=== PATIENT | female | born 1970 | race African-American/Black ===

== ENCOUNTER 2022-09-29 14:29 | Inpatient (IN) ==
[2022-09-29] MEDS ORDERED: ASPIRIN 325 MG TABLET PO STA (17:05)
[2022-09-29] MEDS ORDERED: FUROSEMIDE 40 MG/4 ML VIAL IV STA (17:07)
[2022-09-29 17:13] LABS: Basophils % 0.4 % (0.0-0.8); Eosinophils # 0.2 10*3/uL (0.0-0.87); Hematocrit 25.2 VOL% (35.7-47.0); Hemoglobin 7.5 GM/DL (12.0-16.0); Immature Granulocytes % 0.4 %; Immature Granulocytes Absolute 0.03 #; Lymphocytes % 23.8 % (21.3-54.2); Mean Corpuscular HGB Conc 29.8 GM/DL (32-36); Mean Platelet Volume 10.5 FL (9.6-12.0); Monocytes # 0.8 10*3/uL (0.11-0.8); Monocytes % 9.1 % (1.7-12.7); Neutrophils % 64.3 % (38.7-73.9); Platelet Count 325 T/CUMM (130-400); Red Blood Count 2.83 MC/CUMM (3.8-5.5); Red Cell Distribution Width 19.3 % (9.3-17.3); White Blood Count 8.4 T/CUMM (4-12)
[2022-09-29 17:25] LABS: Alanine Aminotransferase 29 U/L (13-56); Albumin 2.2 G/DL (3.4-5.0); Alkaline Phosphatase 131 U/L (45-117); Aspartate Amino Transferase 27 U/L (0-37); Bilirubin,Total < 0.39 MG/DL (0.20-1.00); Blood Urea Nitrogen 34 MG/DL (7-18); Calcium 8.3 MG/DL (8.5-10.1); Carbon Dioxide 23 MMOL/L (21-32); Chloride 116 MMOL/L (98-107); Glucose 111 MG/DL (74-106); Potassium 4.5 MMOL/L (3.5-5.1); Sodium 143 MMOL/L (136-145); Total Protein 6.1 G/DL (6.4-8.2)
[2022-09-29] MEDS ORDERED: hydrALAZINE 20 MG/1 ML VIAL IV STA (18:51)
[2022-09-29] MEDS ORDERED: ACETAMINOPHEN 325 MG TABLET PO PRN (20:56)
[2022-09-29] MEDS ORDERED: ONDANSETRON 4 MG/2 ML VIAL IV PRN (20:56)
[2022-09-29] MEDS ORDERED: DOCUSATE SODIUM 100 MG CAPSULE PO PRN (20:56)
[2022-09-29] MEDS: carvediloL 6.25 MG TABLET PO SCH (22:00)
[2022-09-29] MEDS: hydrALAZINE 25 MG TABLET PO SCH (22:00)
[2022-09-29] MEDS ORDERED: ENOXAPARIN 120 MG/0.8 ML SYRINGE SUBCUT SCH (23:00)
[2022-09-30 00:49] LABS: Bacteria,Urine Occasional /HPF (Few); Bilirubin,Urine Negative (Negative); Blood, Urine Trace mg/dL (Negative); Glucose,Urine (UA) Negative (Negative); Ketones,Urine Negative (Negative); Mucus,Urine Occasional /LPF (Occasional); Nitrite,Urine Negative (Negative); Protein,Urine >=300 mg/dL (Negative); RBC,Urine 2 /HPF (0-4); Squamous Epithelial Cell,Urine Occasional /HPF (0-10); Urine Appearance Clear (Clear); Urine Color Yellow (Yellow); Urine Specific Gravity 1.025 (1.001-1.035); Urine Urobilinogen 0.2 eU/dL (<2.0); Urine pH 5.5 (4.5-8.0)
[2022-09-30 05:28] LABS: Arterial Base Excess iSTAT -4 MMOL/L (-2.5-2.5); Arterial Bicarbonate iSTAT 20.7 MMOL/L (20-26); Arterial O2 Saturation iSTAT 97 % (95-100); Arterial PCO2 iSTAT 37 MM HG (35-48); Arterial PO2 iSTAT 97 MM HG (80-95); Arterial Total CO2 iSTAT 22 MMO/L (23-27); Arterial pH iSTAT 7.354 (7.35-7.45)
[2022-09-30 06:11] LABS: Basophils % 0.3 % (0.0-0.8); Eosinophils # 0.2 10*3/uL (0.0-0.87); Hematocrit 24.6 VOL% (35.7-47.0); Hemoglobin 7.4 GM/DL (12.0-16.0); Immature Granulocytes % 0.4 %; Immature Granulocytes Absolute 0.04 #; Lymphocytes % 21.5 % (21.3-54.2); Mean Corpuscular HGB Conc 30.1 GM/DL (32-36); Mean Corpuscular Volume 89.5 FL (87-102); Mean Platelet Volume 9.8 FL (9.6-12.0); Monocytes # 0.9 10*3/uL (0.11-0.8); Monocytes % 9.3 % (1.7-12.7); Neutrophils % 66.5 % (38.7-73.9); Platelet Count 289 T/CUMM (130-400); Red Blood Count 2.75 MC/CUMM (3.8-5.5); Red Cell Distribution Width 19.4 % (9.3-17.3); White Blood Count 9.3 T/CUMM (4-12)
[2022-09-30 06:31] LABS: Parathyroid Hormone Intact 150.4 PG/ML (18.4-80.1)
[2022-09-30 06:33] LABS: % Iron Saturation 18.4 % (18-50); Ferritin 460.4 ng/mL (8-252); Phosphorous 4.9 MG/DL (2.5-4.9)
[2022-09-30 06:36] LABS: Folate 9.15 NG/ML (5.38-24.0); Vitamin B12 665 PG/ML (211-911)
[2022-09-30 06:39] LABS: Calcium 8.4 MG/DL (8.5-10.1); Risk Ratio 3.07; Thyroid Stimulating Hormone 1.04 uIU/ml (0.358-3.74); VLDL Cholesterol 22.2 MG/DL
[2022-09-30] MEDS: INSULIN REGULAR 100 UNIT/ML SUBCUT SCH ×4 (07:41→19:43)
[2022-09-30 08:33] LABS: Sedimentation Rate-Westergren 107 MM/HR (0-30)
[2022-09-30] MEDS ORDERED: HEPARIN 5,000 UNIT/1 ML VIAL SUBCUT SCH (09:00)
[2022-09-30] MEDS: FUROSEMIDE 40 MG/4 ML VIAL IV SCH ×2 (09:04→16:19)
[2022-09-30] MEDS: hydrALAZINE 25 MG TABLET PO SCH (09:05)
[2022-09-30] MEDS: carvediloL 6.25 MG TABLET PO SCH (09:05)
[2022-09-30] MEDS: carvediloL 25 MG TABLET PO SCH (16:20)
[2022-09-30] MEDS: HEPARIN 5,000 UNIT/1 ML VIAL SUBCUT SCH (20:05)
[2022-09-30] MEDS: ATORVASTATIN 40 MG TABLET PO SCH (20:05)
[2022-09-30] MEDS: FERROUS SULFATE 325 MG TABLET PO SCH (20:05)
[2022-10-01 05:15] LABS: Basophils % 0.2 % (0.0-0.8); Eosinophils # 0.2 10*3/uL (0.0-0.87); Eosinophils % 1.8 % (0.00-10.9); Hematocrit 22.9 VOL% (35.7-47.0); Immature Granulocytes % 0.5 %; Immature Granulocytes Absolute 0.05 #; Lymphocytes # 1.9 10*3/uL (1.4-4.0); Lymphocytes % 20.2 % (21.3-54.2); Mean Corpuscular HGB Conc 30.6 GM/DL (32-36); Mean Corpuscular Volume 89.5 FL (87-102); Mean Platelet Volume 10.7 FL (9.6-12.0); Monocytes % 10.4 % (1.7-12.7); Neutrophils % 66.9 % (38.7-73.9); Platelet Count 265 T/CUMM (130-400); Red Blood Count 2.56 MC/CUMM (3.8-5.5); Red Cell Distribution Width 18.7 % (9.3-17.3); White Blood Count 9.2 T/CUMM (4-12)
[2022-10-01 05:28] LABS: Calcium 8.4 MG/DL (8.5-10.1); Potassium 3.9 MMOL/L (3.5-5.1)
[2022-10-01] MEDS: INSULIN REGULAR 100 UNIT/ML SUBCUT SCH ×4 (07:25→20:45)
[2022-10-01] MEDS: hydrALAZINE 20 MG/1 ML VIAL IV PRN (07:45)
[2022-10-01] MEDS: PANTOPRAZOLE 40 MG TABLET PO SCH (08:00)
[2022-10-01] MEDS: FERROUS SULFATE 325 MG TABLET PO SCH ×2 (08:00→20:45)
[2022-10-01] MEDS: DAPAGLIFLOZIN 10 MG TABLET PO SCH (08:00)
[2022-10-01] MEDS: CHOLECALCIFEROL 5,000 UNIT TABLET PO SCH (08:00)
[2022-10-01] MEDS: FUROSEMIDE 40 MG/4 ML VIAL IV SCH ×2 (08:00→16:28)
[2022-10-01] MEDS: carvediloL 25 MG TABLET PO SCH ×2 (08:00→16:31)
[2022-10-01] MEDS: ASPIRIN EC 81 MG TABLET PO SCH (08:00)
[2022-10-01] MEDS: HEPARIN 5,000 UNIT/1 ML VIAL SUBCUT SCH ×2 (08:00→20:45)
[2022-10-01] MEDS: GABAPENTIN 100 MG CAPSULE PO SCH ×2 (11:39→20:45)
[2022-10-01] MEDS: ISOSORBIDE MONONITRATE 60 MG TABLET PO SCH (11:39)
[2022-10-01] MEDS: ATORVASTATIN 40 MG TABLET PO SCH (20:45)
[2022-10-02 06:43] LABS: Basophils % 0.2 % (0.0-0.8); Eosinophils # 0.1 10*3/uL (0.0-0.87); Eosinophils % 1.2 % (0.00-10.9); Hematocrit 23.1 VOL% (35.7-47.0); Immature Granulocytes % 0.5 %; Immature Granulocytes Absolute 0.05 #; Lymphocytes # 1.8 10*3/uL (1.4-4.0); Lymphocytes % 18.5 % (21.3-54.2); Mean Corpuscular HGB Conc 30.3 GM/DL (32-36); Mean Corpuscular Volume 88.2 FL (87-102); Mean Platelet Volume 10.7 FL (9.6-12.0); Monocytes # 1.1 10*3/uL (0.11-0.8); Monocytes % 11.6 % (1.7-12.7); Platelet Count 244 T/CUMM (130-400); Red Blood Count 2.62 MC/CUMM (3.8-5.5); Red Cell Distribution Width 18.4 % (9.3-17.3); White Blood Count 9.8 T/CUMM (4-12)
[2022-10-02 06:53] LABS: Calcium 8.6 MG/DL (8.5-10.1); Potassium 3.8 MMOL/L (3.5-5.1)
[2022-10-02] MEDS: INSULIN REGULAR 100 UNIT/ML SUBCUT SCH ×4 (07:55→21:33)
[2022-10-02] MEDS: FUROSEMIDE 40 MG/4 ML VIAL IV SCH ×2 (08:57→16:48)
[2022-10-02] MEDS: ISOSORBIDE MONONITRATE 60 MG TABLET PO SCH (08:58)
[2022-10-02] MEDS: carvediloL 25 MG TABLET PO SCH (08:58)
[2022-10-02] MEDS: DAPAGLIFLOZIN 10 MG TABLET PO SCH (08:58)
[2022-10-02] MEDS: HEPARIN 5,000 UNIT/1 ML VIAL SUBCUT SCH ×2 (08:58→21:30)
[2022-10-02] MEDS: GABAPENTIN 100 MG CAPSULE PO SCH ×2 (08:58→21:30)
[2022-10-02] MEDS: sitaGLIPtin 25 MG TABLET PO SCH (08:59)
[2022-10-02] MEDS: ASPIRIN EC 81 MG TABLET PO SCH (08:59)
[2022-10-02] MEDS: FERROUS SULFATE 325 MG TABLET PO SCH ×2 (08:59→21:30)
[2022-10-02] MEDS: PANTOPRAZOLE 40 MG TABLET PO SCH (08:59)
[2022-10-02] MEDS: CHOLECALCIFEROL 5,000 UNIT TABLET PO SCH (08:59)
[2022-10-02] MEDS ORDERED: cloNIDine 0.1 MG TABLET PO SCH (09:00)
[2022-10-02 10:41] LABS: Hemoglobin A1 (Alkaline) 97.3 % (96.5-98.5); Hemoglobin A2 (Alkaline) 2.7 % (1.5-3.5)
[2022-10-02] MEDS: hydrALAZINE 20 MG/1 ML VIAL IV PRN (12:22)
[2022-10-02] MEDS ORDERED: amLODIPine 5 MG TABLET PO ONE (13:32)
[2022-10-02] MEDS: METOCLOPRAMIDE 5 MG TABLET PO SCH (16:48)
[2022-10-02] MEDS: ATORVASTATIN 40 MG TABLET PO SCH (21:30)
[2022-10-02] MEDS: NEBIVOLOL 10 MG TABLET PO SCH (21:30)
[2022-10-03 04:51] LABS: Basophils % 0.2 % (0.0-0.8); Eosinophils # 0.3 10*3/uL (0.0-0.87); Eosinophils % 3.1 % (0.00-10.9); Hematocrit 23.2 VOL% (35.7-47.0); Hemoglobin 7.2 GM/DL (12.0-16.0); Immature Granulocytes % 0.2 %; Immature Granulocytes Absolute 0.02 #; Lymphocytes # 2.1 10*3/uL (1.4-4.0); Lymphocytes % 23.7 % (21.3-54.2); Mean Corpuscular Volume 87.2 FL (87-102); Mean Platelet Volume 10.2 FL (9.6-12.0); Monocytes # 0.9 10*3/uL (0.11-0.8); Monocytes % 10.7 % (1.7-12.7); Neutrophils % 62.1 % (38.7-73.9); Platelet Count 231 T/CUMM (130-400); Red Blood Count 2.66 MC/CUMM (3.8-5.5); Red Cell Distribution Width 17.8 % (9.3-17.3); White Blood Count 8.8 T/CUMM (4-12)
[2022-10-03 05:21] LABS: Calcium 8.6 MG/DL (8.5-10.1); Osmolality,Calculated 289.1 MOS/KG (273-304); Potassium 3.8 MMOL/L (3.5-5.1)
[2022-10-03] MEDS ORDERED: MAGNESIUM SULF RIDER 2 GM/50 ML PREMIX IV ONE (06:51)
[2022-10-03] MEDS: INSULIN REGULAR 100 UNIT/ML SUBCUT SCH ×4 (08:23→21:22)
[2022-10-03] MEDS ORDERED: DOXAZOSIN 1 MG TABLET PO SCH (09:00)
[2022-10-03] MEDS: FUROSEMIDE 40 MG/4 ML VIAL IV SCH ×2 (10:04→17:15)
[2022-10-03] MEDS: HEPARIN 5,000 UNIT/1 ML VIAL SUBCUT SCH ×2 (10:05→21:19)
[2022-10-03] MEDS: CHOLECALCIFEROL 5,000 UNIT TABLET PO SCH (10:05)
[2022-10-03] MEDS: ISOSORBIDE MONONITRATE 60 MG TABLET PO SCH (10:05)
[2022-10-03] MEDS: sitaGLIPtin 25 MG TABLET PO SCH (10:06)
[2022-10-03] MEDS: NEBIVOLOL 10 MG TABLET PO SCH ×2 (10:06→21:19)
[2022-10-03] MEDS: METOCLOPRAMIDE 5 MG TABLET PO SCH ×3 (10:06→17:14)
[2022-10-03] MEDS: GABAPENTIN 100 MG CAPSULE PO SCH ×2 (10:07→21:19)
[2022-10-03] MEDS: ASPIRIN EC 81 MG TABLET PO SCH (10:07)
[2022-10-03] MEDS: amLODIPine 5 MG TABLET PO SCH (10:07)
[2022-10-03] MEDS: FERROUS SULFATE 325 MG TABLET PO SCH ×2 (10:07→21:19)
[2022-10-03] MEDS: DAPAGLIFLOZIN 10 MG TABLET PO SCH (10:07)
[2022-10-03] MEDS: PANTOPRAZOLE 40 MG TABLET PO SCH (10:07)
[2022-10-03] MEDS: hydrALAZINE 20 MG/1 ML VIAL IV PRN (12:16)
[2022-10-03 16:26] LABS: Soluble Transf Receptor (sTfR) 4.5 mg/L (1.8 - 4.6)
[2022-10-03] MEDS ORDERED: DOXAZOSIN 1 MG TABLET PO ONE (21:00)
[2022-10-03] MEDS: ATORVASTATIN 40 MG TABLET PO SCH (21:19)
[2022-10-04] MEDS: hydrALAZINE 20 MG/1 ML VIAL IV PRN (00:45)
[2022-10-04 04:35] LABS: Basophils % 0.2 % (0.0-0.8); Eosinophils # 0.2 10*3/uL (0.0-0.87); Eosinophils % 2.2 % (0.00-10.9); Hematocrit 24.5 VOL% (35.7-47.0); Hemoglobin 7.5 GM/DL (12.0-16.0); Immature Granulocytes % 0.5 %; Immature Granulocytes Absolute 0.05 #; Lymphocytes # 2.1 10*3/uL (1.4-4.0); Lymphocytes % 18.9 % (21.3-54.2); Mean Corpuscular HGB Conc 30.6 GM/DL (32-36); Mean Corpuscular Volume 86.6 FL (87-102); Mean Platelet Volume 10.5 FL (9.6-12.0); Monocytes % 9.2 % (1.7-12.7); Platelet Count 235 T/CUMM (130-400); Red Blood Count 2.83 MC/CUMM (3.8-5.5); Red Cell Distribution Width 17.3 % (9.3-17.3)
[2022-10-04 04:53] LABS: Calcium 8.7 MG/DL (8.5-10.1); Osmolality,Calculated 287.4 MOS/KG (273-304); Potassium 3.7 MMOL/L (3.5-5.1)
[2022-10-04] MEDS: INSULIN REGULAR 100 UNIT/ML SUBCUT SCH ×4 (08:00→21:14)
[2022-10-04] MEDS: FUROSEMIDE 40 MG/4 ML VIAL IV SCH ×2 (08:44→16:38)
[2022-10-04] MEDS: FERROUS SULFATE 325 MG TABLET PO SCH ×2 (08:45→21:13)
[2022-10-04] MEDS: HEPARIN 5,000 UNIT/1 ML VIAL SUBCUT SCH ×2 (08:45→21:13)
[2022-10-04] MEDS: ASPIRIN EC 81 MG TABLET PO SCH (08:45)
[2022-10-04] MEDS: ISOSORBIDE MONONITRATE 60 MG TABLET PO SCH (08:45)
[2022-10-04] MEDS: DAPAGLIFLOZIN 10 MG TABLET PO SCH (08:45)
[2022-10-04] MEDS: cloNIDine 0.1 MG TABLET PO PRN ×2 (08:45→16:37)
[2022-10-04] MEDS: sitaGLIPtin 25 MG TABLET PO SCH (08:45)
[2022-10-04] MEDS: GABAPENTIN 100 MG CAPSULE PO SCH ×2 (08:46→21:13)
[2022-10-04] MEDS: DOXAZOSIN 1 MG TABLET PO SCH ×2 (08:46→21:13)
[2022-10-04] MEDS: amLODIPine 5 MG TABLET PO SCH (08:46)
[2022-10-04] MEDS: METOCLOPRAMIDE 5 MG TABLET PO SCH ×3 (08:46→16:42)
[2022-10-04] MEDS: CHOLECALCIFEROL 5,000 UNIT TABLET PO SCH (08:46)
[2022-10-04] MEDS: NEBIVOLOL 10 MG TABLET PO SCH ×2 (08:46→21:13)
[2022-10-04] MEDS: PANTOPRAZOLE 40 MG TABLET PO SCH (08:46)
[2022-10-04] MEDS: ATORVASTATIN 40 MG TABLET PO SCH (21:13)
[2022-10-05] MEDS: hydrALAZINE 20 MG/1 ML VIAL IV PRN (01:29)
[2022-10-05 05:11] LABS: Basophils % 0.3 % (0.0-0.8); Eosinophils # 0.2 10*3/uL (0.0-0.87); Eosinophils % 1.9 % (0.00-10.9); Hematocrit 22.5 VOL% (35.7-47.0); Immature Granulocytes % 0.4 %; Immature Granulocytes Absolute 0.04 #; Lymphocytes # 1.9 10*3/uL (1.4-4.0); Lymphocytes % 19.6 % (21.3-54.2); Mean Corpuscular HGB Conc 31.1 GM/DL (32-36); Mean Corpuscular Volume 86.5 FL (87-102); Mean Platelet Volume 10.7 FL (9.6-12.0); Neutrophils % 67.8 % (38.7-73.9); Platelet Count 227 T/CUMM (130-400); Red Cell Distribution Width 17.2 % (9.3-17.3); White Blood Count 9.9 T/CUMM (4-12)
[2022-10-05 05:40] LABS: Calcium 8.6 MG/DL (8.5-10.1); Osmolality,Calculated 291.1 MOS/KG (273-304); Potassium 3.5 MMOL/L (3.5-5.1)
[2022-10-05] MEDS: INSULIN REGULAR 100 UNIT/ML SUBCUT SCH ×4 (09:31→22:03)
[2022-10-05] MEDS: DAPAGLIFLOZIN 10 MG TABLET PO SCH (09:41)
[2022-10-05] MEDS: PANTOPRAZOLE 40 MG TABLET PO SCH (09:41)
[2022-10-05] MEDS: DOXAZOSIN 1 MG TABLET PO SCH ×2 (09:41→20:56)
[2022-10-05] MEDS: FERROUS SULFATE 325 MG TABLET PO SCH ×2 (09:41→20:56)
[2022-10-05] MEDS: ISOSORBIDE MONONITRATE 60 MG TABLET PO SCH (09:41)
[2022-10-05] MEDS: GABAPENTIN 100 MG CAPSULE PO SCH ×2 (09:41→20:55)
[2022-10-05] MEDS: NEBIVOLOL 10 MG TABLET PO SCH (09:41)
[2022-10-05] MEDS: ASPIRIN EC 81 MG TABLET PO SCH (09:41)
[2022-10-05] MEDS: METOCLOPRAMIDE 5 MG TABLET PO SCH ×3 (09:42→16:10)
[2022-10-05] MEDS: amLODIPine 5 MG TABLET PO SCH (09:42)
[2022-10-05] MEDS: LINACLOTIDE 145 MCG CAPSULE PO SCH (09:42)
[2022-10-05] MEDS: FUROSEMIDE 40 MG/4 ML VIAL IV SCH ×2 (09:43→16:07)
[2022-10-05] MEDS: HEPARIN 5,000 UNIT/1 ML VIAL SUBCUT SCH ×2 (09:45→20:55)
[2022-10-05] MEDS: sitaGLIPtin 25 MG TABLET PO SCH (09:45)
[2022-10-05] MEDS: CHOLECALCIFEROL 5,000 UNIT TABLET PO SCH (09:45)
[2022-10-05] MEDS ORDERED: DOXAZOSIN 1 MG TABLET PO ONE (12:49)
[2022-10-05] MEDS ORDERED: NEBIVOLOL 10 MG TABLET PO ONE (12:50)
[2022-10-05] MEDS: ATORVASTATIN 40 MG TABLET PO SCH (20:55)
[2022-10-05] MEDS: cloNIDine 0.1 MG TABLET PO PRN (20:55)
[2022-10-05] MEDS: traZODone 50 MG TABLET PO PRN (20:57)
[2022-10-05] MEDS ORDERED: NEBIVOLOL 10 MG TABLET PO SCH (21:00)
[2022-10-06 04:41] LABS: Basophils % 0.2 % (0.0-0.8); Eosinophils # 0.2 10*3/uL (0.0-0.87); Eosinophils % 2.1 % (0.00-10.9); Hematocrit 22.9 VOL% (35.7-47.0); Hemoglobin 7.1 GM/DL (12.0-16.0); Immature Granulocytes % 0.6 %; Immature Granulocytes Absolute 0.05 #; Lymphocytes % 23.1 % (21.3-54.2); Mean Corpuscular Volume 86.7 FL (87-102); Mean Platelet Volume 10.7 FL (9.6-12.0); Monocytes # 0.8 10*3/uL (0.11-0.8); Monocytes % 9.7 % (1.7-12.7); Neutrophils % 64.3 % (38.7-73.9); Platelet Count 233 T/CUMM (130-400); Red Blood Count 2.64 MC/CUMM (3.8-5.5); White Blood Count 8.6 T/CUMM (4-12)
[2022-10-06 05:06] LABS: Calcium 8.7 MG/DL (8.5-10.1); Osmolality,Calculated 289.3 MOS/KG (273-304); Potassium 3.5 MMOL/L (3.5-5.1)
[2022-10-06] MEDS: LINACLOTIDE 145 MCG CAPSULE PO SCH (10:35)
[2022-10-06] MEDS: INSULIN REGULAR 100 UNIT/ML SUBCUT SCH ×4 (10:36→23:02)
[2022-10-06] MEDS: ISOSORBIDE MONONITRATE 60 MG TABLET PO SCH (10:37)
[2022-10-06] MEDS: DAPAGLIFLOZIN 10 MG TABLET PO SCH (10:38)
[2022-10-06] MEDS: sitaGLIPtin 25 MG TABLET PO SCH (10:38)
[2022-10-06] MEDS: FERROUS SULFATE 325 MG TABLET PO SCH ×2 (10:38→22:38)
[2022-10-06] MEDS: PANTOPRAZOLE 40 MG TABLET PO SCH (10:38)
[2022-10-06] MEDS: CHOLECALCIFEROL 5,000 UNIT TABLET PO SCH (10:39)
[2022-10-06] MEDS: ASPIRIN EC 81 MG TABLET PO SCH (10:39)
[2022-10-06] MEDS: GABAPENTIN 100 MG CAPSULE PO SCH ×2 (10:39→22:38)
[2022-10-06] MEDS: NEBIVOLOL 10 MG TABLET PO SCH ×2 (10:41→22:36)
[2022-10-06] MEDS: amLODIPine 5 MG TABLET PO SCH (10:41)
[2022-10-06] MEDS: FUROSEMIDE 40 MG/4 ML VIAL IV SCH ×2 (10:42→17:05)
[2022-10-06] MEDS: HEPARIN 5,000 UNIT/1 ML VIAL SUBCUT SCH ×2 (10:42→22:38)
[2022-10-06] MEDS: METOCLOPRAMIDE 5 MG TABLET PO SCH ×3 (10:47→17:05)
[2022-10-06] MEDS: DOXAZOSIN 1 MG TABLET PO SCH ×2 (10:48→22:41)
[2022-10-06] MEDS: hydrALAZINE 20 MG/1 ML VIAL IV PRN (12:51)
[2022-10-06] MEDS: ATORVASTATIN 40 MG TABLET PO SCH (22:37)
[2022-10-06] MEDS: cloNIDine 0.1 MG TABLET PO PRN (22:37)
[2022-10-07 04:29] LABS: Basophils % 0.3 % (0.0-0.8); Eosinophils # 0.2 10*3/uL (0.0-0.87); Eosinophils % 1.9 % (0.00-10.9); Hematocrit 21.5 VOL% (35.7-47.0); Hemoglobin 6.5 GM/DL (12.0-16.0); Immature Granulocytes % 0.3 %; Immature Granulocytes Absolute 0.03 #; Lymphocytes % 22.5 % (21.3-54.2); Mean Corpuscular HGB Conc 30.2 GM/DL (32-36); Mean Corpuscular Volume 87.8 FL (87-102); Mean Platelet Volume 11.1 FL (9.6-12.0); Monocytes % 11.6 % (1.7-12.7); Neutrophils % 63.4 % (38.7-73.9); Platelet Count 221 T/CUMM (130-400); Red Blood Count 2.45 MC/CUMM (3.8-5.5); Red Cell Distribution Width 16.9 % (9.3-17.3); White Blood Count 8.8 T/CUMM (4-12)
[2022-10-07 04:45] LABS: Calcium 8.4 MG/DL (8.5-10.1); Osmolality,Calculated 288.4 MOS/KG (273-304); Potassium 3.5 MMOL/L (3.5-5.1)
[2022-10-07] MEDS ORDERED: SODIUM CHLORIDE 0.9% 1,000 ML IV PRN (07:13)
[2022-10-07] MEDS: INSULIN REGULAR 100 UNIT/ML SUBCUT SCH ×4 (09:18→21:22)
[2022-10-07] MEDS: FUROSEMIDE 40 MG/4 ML VIAL IV SCH ×2 (10:19→16:45)
[2022-10-07] MEDS: DOXAZOSIN 1 MG TABLET PO SCH ×2 (10:20→21:21)
[2022-10-07] MEDS: LINACLOTIDE 145 MCG CAPSULE PO SCH (10:20)
[2022-10-07] MEDS: METOCLOPRAMIDE 5 MG TABLET PO SCH ×3 (10:20→17:27)
[2022-10-07] MEDS: DAPAGLIFLOZIN 10 MG TABLET PO SCH (10:20)
[2022-10-07] MEDS: sitaGLIPtin 25 MG TABLET PO SCH (10:21)
[2022-10-07] MEDS: CHOLECALCIFEROL 5,000 UNIT TABLET PO SCH (10:21)
[2022-10-07] MEDS: ASPIRIN EC 81 MG TABLET PO SCH (10:21)
[2022-10-07] MEDS: PANTOPRAZOLE 40 MG TABLET PO SCH (10:21)
[2022-10-07] MEDS: NEBIVOLOL 10 MG TABLET PO SCH ×2 (10:21→21:21)
[2022-10-07] MEDS: ISOSORBIDE MONONITRATE 60 MG TABLET PO SCH (10:22)
[2022-10-07] MEDS: amLODIPine 5 MG TABLET PO SCH ×2 (10:22→16:44)
[2022-10-07] MEDS: FERROUS SULFATE 325 MG TABLET PO SCH ×2 (10:22→21:21)
[2022-10-07] MEDS: GABAPENTIN 100 MG CAPSULE PO SCH ×2 (10:22→21:21)
[2022-10-07] MEDS: cloNIDine 0.1 MG TABLET PO PRN (12:38)
[2022-10-07] MEDS: hydrALAZINE 20 MG/1 ML VIAL IV PRN (16:45)
[2022-10-07] MEDS: traZODone 50 MG TABLET PO PRN (21:20)
[2022-10-07] MEDS: ATORVASTATIN 40 MG TABLET PO SCH (21:20)
[2022-10-08 04:47] LABS: Basophils % 0.4 % (0.0-0.8); Eosinophils # 0.2 10*3/uL (0.0-0.87); Eosinophils % 1.9 % (0.00-10.9); Hematocrit 25.6 VOL% (35.7-47.0); Hemoglobin 7.9 GM/DL (12.0-16.0); Immature Granulocytes % 0.3 %; Immature Granulocytes Absolute 0.02 #; Lymphocytes # 1.9 10*3/uL (1.4-4.0); Lymphocytes % 24.3 % (21.3-54.2); Mean Corpuscular HGB Conc 30.9 GM/DL (32-36); Mean Corpuscular Volume 85.6 FL (87-102); Mean Platelet Volume 11.2 FL (9.6-12.0); Monocytes # 0.9 10*3/uL (0.11-0.8); Monocytes % 11.8 % (1.7-12.7); Neutrophils % 61.3 % (38.7-73.9); Platelet Count 238 T/CUMM (130-400); Red Blood Count 2.99 MC/CUMM (3.8-5.5); White Blood Count 7.8 T/CUMM (4-12)
[2022-10-08 05:09] LABS: Calcium 8.8 MG/DL (8.5-10.1); Osmolality,Calculated 290.1 MOS/KG (273-304); Potassium 3.4 MMOL/L (3.5-5.1)
[2022-10-08] MEDS ORDERED: POTASSIUM CHLORIDE 20 MEQ TABLET PO ONE (07:41)
[2022-10-08] MEDS: INSULIN REGULAR 100 UNIT/ML SUBCUT SCH ×4 (09:11→21:15)
[2022-10-08] MEDS: hydrALAZINE 20 MG/1 ML VIAL IV PRN (10:38)
[2022-10-08] MEDS: FERROUS SULFATE 325 MG TABLET PO SCH ×2 (10:39→21:14)
[2022-10-08] MEDS: DOXAZOSIN 1 MG TABLET PO SCH ×2 (10:40→21:14)
[2022-10-08] MEDS: METOCLOPRAMIDE 5 MG TABLET PO SCH ×3 (10:40→17:12)
[2022-10-08] MEDS: CHOLECALCIFEROL 5,000 UNIT TABLET PO SCH (10:40)
[2022-10-08] MEDS: ISOSORBIDE MONONITRATE 60 MG TABLET PO SCH (10:40)
[2022-10-08] MEDS: amLODIPine 5 MG TABLET PO SCH (10:40)
[2022-10-08] MEDS: DAPAGLIFLOZIN 10 MG TABLET PO SCH (10:40)
[2022-10-08] MEDS: PANTOPRAZOLE 40 MG TABLET PO SCH (10:41)
[2022-10-08] MEDS: GABAPENTIN 100 MG CAPSULE PO SCH ×2 (10:41→21:14)
[2022-10-08] MEDS: ASPIRIN EC 81 MG TABLET PO SCH (10:41)
[2022-10-08] MEDS: sitaGLIPtin 25 MG TABLET PO SCH (10:42)
[2022-10-08] MEDS: NEBIVOLOL 10 MG TABLET PO SCH ×2 (10:42→21:14)
[2022-10-08] MEDS: LINACLOTIDE 145 MCG CAPSULE PO SCH (10:43)
[2022-10-08] MEDS: FUROSEMIDE 40 MG/4 ML VIAL IV SCH ×2 (10:44→17:14)
[2022-10-08] MEDS: ATORVASTATIN 40 MG TABLET PO SCH (21:13)
[2022-10-08] MEDS: traZODone 50 MG TABLET PO PRN (21:14)
[2022-10-09 04:39] LABS: Basophils % 0.4 % (0.0-0.8); Eosinophils # 0.2 10*3/uL (0.0-0.87); Eosinophils % 2.3 % (0.00-10.9); Hematocrit 25.7 VOL% (35.7-47.0); Immature Granulocytes % 0.4 %; Immature Granulocytes Absolute 0.03 #; Lymphocytes # 2.1 10*3/uL (1.4-4.0); Lymphocytes % 25.4 % (21.3-54.2); Mean Corpuscular HGB Conc 31.1 GM/DL (32-36); Mean Corpuscular Volume 86.2 FL (87-102); Monocytes # 0.9 10*3/uL (0.11-0.8); Monocytes % 10.7 % (1.7-12.7); Neutrophils % 60.8 % (38.7-73.9); Platelet Count 245 T/CUMM (130-400); Red Blood Count 2.98 MC/CUMM (3.8-5.5); Red Cell Distribution Width 16.6 % (9.3-17.3); White Blood Count 8.1 T/CUMM (4-12)
[2022-10-09 04:59] LABS: Calcium 8.6 MG/DL (8.5-10.1); Osmolality,Calculated 290.1 MOS/KG (273-304); Potassium 3.8 MMOL/L (3.5-5.1)
[2022-10-09] MEDS: hydrALAZINE 20 MG/1 ML VIAL IV PRN (05:45)
[2022-10-09] MEDS: INSULIN REGULAR 100 UNIT/ML SUBCUT SCH ×2 (08:58→13:11)
[2022-10-09] MEDS: FUROSEMIDE 40 MG/4 ML VIAL IV SCH (09:52)
[2022-10-09] MEDS: DOXAZOSIN 1 MG TABLET PO SCH (10:07)
[2022-10-09] MEDS: METOCLOPRAMIDE 5 MG TABLET PO SCH ×2 (10:08→11:58)
[2022-10-09] MEDS: ASPIRIN EC 81 MG TABLET PO SCH (10:08)
[2022-10-09] MEDS: ISOSORBIDE MONONITRATE 60 MG TABLET PO SCH (10:09)
[2022-10-09] MEDS: GABAPENTIN 100 MG CAPSULE PO SCH (10:09)
[2022-10-09] MEDS: DAPAGLIFLOZIN 10 MG TABLET PO SCH (10:09)
[2022-10-09] MEDS: amLODIPine 5 MG TABLET PO SCH (10:10)
[2022-10-09] MEDS: PANTOPRAZOLE 40 MG TABLET PO SCH (10:10)
[2022-10-09] MEDS: sitaGLIPtin 25 MG TABLET PO SCH (10:10)
[2022-10-09] MEDS: FERROUS SULFATE 325 MG TABLET PO SCH (10:10)
[2022-10-09] MEDS: HEPARIN 5,000 UNIT/1 ML VIAL SUBCUT SCH (10:12)
[2022-10-09] MEDS: NEBIVOLOL 10 MG TABLET PO SCH (10:15)
[2022-10-09] MEDS: LINACLOTIDE 145 MCG CAPSULE PO SCH (11:26)
[2022-10-09] MEDS: CHOLECALCIFEROL 5,000 UNIT TABLET PO SCH (11:26)
[2022-10-09 12:51] VITALS: BP 175/68
[2022-10-09 18:46] LABS: Normetanephrine, U 168 mcg/24 h; Total Metanephrines, U 278 mcg/24 h; Urine Volume 2750 mL
== END 2022-10-09 14:45 | disposition home health service (06) | DRG 291 ==
LOC: N.ED 14:29 → N.EDINP 19:02 → SUATTDRO 19:02 → N.TELES 19:20
PROVIDERS: ADMIT Internal Medicine Geriatric Medicine; ATTEND Internal Medicine Geriatric Medicine